=== PATIENT | female | born 1950 | race Caucasian/White ===

== ENCOUNTER 2018-11-09 05:21 | Day surgery (SDC) | payer MEDICARE, OTHER ==
[2018-11-09] MEDS ORDERED: SOD CHLORIDE 0.9% 1,000 ML IV (06:30)
[2018-11-09] MEDS ORDERED: SUCCINYLCHOLINE CHLORIDE 100 MG/5 ML SYG IV (07:18)
[2018-11-09] MEDS ORDERED: CEFAZOLIN 1 GM INJ (07:18)
[2018-11-09] MEDS ORDERED: FENTAnyl 50 MCG/ML VIAL (07:18)
[2018-11-09] MEDS ORDERED: PROPOFOL 20 ML (07:18)
[2018-11-09] MEDS ORDERED: MIDAZOLAM 1 MG/ML 2 ML INJ (07:18)
[2018-11-09] MEDS ORDERED: LIDOCAINE 2% (SDV) 5 ML INJ (07:18)
[2018-11-09] MEDS ORDERED: DESFLURANE 15 MIN (07:18)
[2018-11-09] MEDS ORDERED: ROCURONIUM 50 MG INJ (07:18)
[2018-11-09] MEDS ORDERED: ROPIVACAINE 0.5 % 30 ML VIAL (07:19)
[2018-11-09] MEDS ORDERED: ONDANSETRON 4 MG INJ IV (07:30)
[2018-11-09] MEDS ORDERED: HYDROmorphONE 1 MG/5 ML IV SYRINGE IV ×3 (07:30)
[2018-11-09] MEDS ORDERED: ALBUTEROL 0.083% (NEB) 2.5 MG/3 ML AMP HHN (07:30)
[2018-11-09] MEDS ORDERED: IPRATROPIUM (NEB) 0.5 MG/2.5 ML AMP HHN (07:30)
[2018-11-09] MEDS ORDERED: FENTAnyl 50 MCG/ML VIAL IV ×3 (07:30)
[2018-11-09] MEDS ORDERED: EPHEDrine 25 MG/5 ML SYG IV (07:30)
[2018-11-09] MEDS ORDERED: hydrALAzine 20 MG INJ IV (07:30)
[2018-11-09] MEDS ORDERED: OXYCODONE/ACETAMINOPHEN (5/325) TAB PO ×2 (07:30)
[2018-11-09] MEDS ORDERED: DIPHENHYDRAMINE 50 MG INJ IV (07:30)
[2018-11-09] MEDS: EPINEPHrine 1 MG/ML 30 ML INJ (08:53)
[2018-11-09] MEDS: morphine SULFATE/PF (10 MG/10 ML) INJ (09:10)
[2018-11-09] MEDS ORDERED: EPHEDrine 25 MG/5 ML SYG (09:15)
[2018-11-09] MEDS ORDERED: PHENYLephrine (100 MCG/ML) 10ML SYG (09:15)
[2018-11-09] MEDS ORDERED: ONDANSETRON 4 MG INJ (09:16)
[2018-11-09] MEDS: LABETALOL HCL 20MG INJ IV (10:53)
[2018-11-09] MEDS: MEPERIDINE 25 MG INJ IV (11:05)
[2018-11-09] MEDS: CEFAZOLIN 2 GM/50 ML (PMX) 50 ML IVPB (12:07)
== END 2018-11-09 12:33 | disposition home or self-care (01) ==
LOC: SDS 05:21
DX: S43.431D Superior glenoid labrum lesion of right shoulder, subsequent encounter (principal); X58.XXXD Exposure to other specified factors, subsequent encounter; M75.101 Unspecified rotator cuff tear or rupture of right shoulder, not specified as traumatic; I10 Essential (primary) hypertension; E11.9 Type 2 diabetes mellitus without complications
CPT/HCPCS: 29807; 71045; 82962; 93005